=== PATIENT | male | born 1990 | race Caucasian/White ===

== ENCOUNTER 2024-01-20 12:42 | Emergency (ER) | payer BC, SELFPAY ==
[2024-01-20 12:50] VITALS: BP 146/101
[2024-01-20] MEDS: TORADOL 15 MG IV (14:29)
[2024-01-20 14:36] LABS: % Basophils 0.7 % (0-2); % Eosinophils 16.8 % (0-6); % Immature Granulocytes 0.4 % (0-0.5); % Lymphocytes 28.1 % (20.5-51.1); % Monocytes 6.3 % (1.7-9.3); % Neutrophils 47.7 % (42.2-75.2); Absolute Basophils 0.1 10^3/uL (0-0.2); Absolute Eosinophils 1.2 10^3/uL (0-0.7); Absolute Monocytes 0.5 10^3/uL (0.1-0.6); Absolute Neutrophils 3.5 10^3/uL (1.4-6.5); Hemoglobin 16.5 g/dL (13.0-18.0); Mean Corp Hgb Conc. 35.1 g/dL (33.0-37.0); Mean Corpuscular Volume 91.3 fL (80.0-94.0); Mean Platelet Volume 10.2 fL (7.4-10.4); Nucleated Red Blood Cells % 0 % (-); Platelet Count 181 10^3/uL (130-400); Red Blood Cell Count 5.15 10^6/uL (4.70-6.10); Red Cell Dist. Width 11.9 % (11.5-14.5); White Blood Cell Count 7.3 10^3/uL (4.8-10.8)
[2024-01-20 14:43] LABS: INR 1.04; PT 13.7 Sec (11.4-14.6)
[2024-01-20 14:44] LABS: APTT 29.1 Sec (23.4-35.0)
[2024-01-20 14:48] LABS: D-Dimer < 0.27 ug/mlFEU (0.00-0.50)
[2024-01-20 15:01] LABS: ALT (SGPT) 37 U/L (0-50); AST (SGOT) 25 U/L (17-59); Albumin 4.9 g/dl (3.5-5.0); Alkaline Phosphatase 66 U/L (38-126); Blood Urea Nitrogen 14 mg/dl (9-20); Calcium 9.9 mg/dl (8.4-10.2); Carbon Dioxide 34 mmol/L (22-30); Chloride 100 mmol/L (98-107); Glucose 95 mg/dl (70-99); Lipase 54 U/L (23-300); Magnesium 2.1 mg/dl (1.6-2.3); Potassium 4.3 mmol/L (3.5-5.1); Sodium 137 mmol/L (135-145); Total Protein 7.4 g/dl (6.3-8.2); eGFR > 60.00
--- NOTE | 2024-01-20 16:04 | ED.GENMED ---
History of Present Illness
<Saritha Diaz PA-C - Last Filed: 01/21/24 18:11>
General
Chief Complaint: Abdominal Pain
Source: patient
Exam Limitations: none
Time Seen by Provider: 01/20/24 13:19
Nursing documentation reviewed up to this point in time: agreed with
Travel History
Have you had any contact with someone who has COVID-19?: No
Do you have any symptoms of coronavirus? Fever > 100 degrees, chills, cough, shortness of breath, sore throat, loss of taste or smell, muscle aches, or headache?: No
History of Present Illness
History of Present Illness:
33-year-old male within the last several months diagnosed with rheumatoid arthritis on Humira, last shot was last week, followed by rheumatology presents with symptoms worsening in the right lower ribs wrapping around his back and into his shoulder
over the last 6 months. Patient has had this ever since he got diagnosed with rheumatoid arthritis which presented with pain and swelling in his hands which prompted his primary to send him to the nursing home assistant who did inflammatory marker testing
which came back positive. Patient says his hands have gotten much better since being on the Humira but he continues to have this pain in his right lower ribs or upper quadrant region that seems to travel to the shoulder. In the last week its
gotten worse. He does not feel an overly pleuritic component to this pain but he does have it slightly with deep breathing. He is not short of breath or having exertional dyspnea. Patient has had some feeling of nausea when his stomach is empty.
He is also worried about his gallbladder. He called his nursing home assistant today since the pain seems to be getting worse and they sent him for evaluation. Patient has not had a cough or cold or fever.
Past History
<Saritha Diaz PA-C - Last Filed: 01/21/24 18:11>
Past History
ED Past Medical History: None
Social History
Personal: Single
Living: with family
Employment: Employed
Review of Systems
<Saritha Diaz PA-C - Last Filed: 01/21/24 18:11>
Review of Systems
Allergies reviewed?: Yes
All Other Systems: Not applicable
Phy Exam
<Saritha Diaz PA-C - Last Filed: 01/21/24 18:11>
Physical Exam
Physical Exam:
GENERAL: Alert , in no apparent distress
EYE: pupils equal and reactive
NECK: Supple
ENT: o/p clr, mmm.
CARDIAC: Regular rate and rhythm .
LUNGS: Clear breath sounds bilaterally, no acute respiratory distress, no wheezes/rales/rhonchi
chest wall: mild right lower chest wall tendenress
ABDOMEN: Soft, mild RUQ tenderness; no r/g, no cvat, normal bowel sounds
NEUROLOGICAL: Alert and oriented, no focal neuro deficits
SKIN: Warm and dry, skin intact. no rash
back: mild tenderness right side
MUSCULOSKELETAL: No edema, well perfused. neg jamin's sign
PSYCH: Normal and appropriate interaction.
Course
<Saritha Diaz PA-C - Last Filed: 01/21/24 18:11>
Orders/Labs/Results
Orders:
Orders
01/20/24 14:02
Ketorolac [Toradol] 15 mg IV NOW STA
US Abdomen Complete/Upper Urgent
Comment:
Reason For Exam: right upper quad pain to back
01/20/24 14:25
Complete Blood Count/With Diff Urgent
Comprehensive Metabolic Panel Urgent
D-Dimer Urgent
Lipase Urgent
Magnesium Urgent
PTT Urgent
Prothrombin Time Urgent
01/20/24 16:04
CR Chest - 2 Views Urgent
Comment:
Reason For Exam: right lower chest wall pain
Abnormal Lab Results
01/20/24
14:25
MCH 32.0 H pg
(27.0-31.0)
Absolute Eos (auto) 1.2 H 10^3/uL
(0-0.7)
Eosinophils % 16.8 H %
(0-6)
Carbon Dioxide 34 H mmol/L
(22-30)
01/20/24 14:25
01/20/24 14:25
Vital Signs
Initial and Last Documented VS:
Initial Vital Signs
Temp Pulse Resp BP Pulse Ox
97.7 F 117 20 146/101 100
01/20/24 12:50 01/20/24 12:50 01/20/24 12:50 01/20/24 12:50 01/20/24 12:50
Last Documented Vital Signs
Temp Pulse Resp BP Pulse Ox
97.7 F 65 17 128/84 100
01/20/24 12:50 01/20/24 16:49 01/20/24 16:49 01/20/24 16:49 01/20/24 16:49
<Megan Wang PA-C - Last Filed: 01/20/24 18:13>
Orders/Labs/Results
Orders:
Orders
01/20/24 14:02
Ketorolac [Toradol] 15 mg IV NOW STA
US Abdomen Complete/Upper Urgent
Comment:
Reason For Exam: right upper quad pain to back
01/20/24 14:25
Complete Blood Count/With Diff Urgent
Comprehensive Metabolic Panel Urgent
D-Dimer Urgent
Lipase Urgent
Magnesium Urgent
PTT Urgent
Prothrombin Time Urgent
01/20/24 16:04
CR Chest - 2 Views Urgent
Comment:
Reason For Exam: right lower chest wall pain
Abnormal Lab Results
01/20/24
14:25
MCH 32.0 H pg
(27.0-31.0)
Absolute Eos (auto) 1.2 H 10^3/uL
(0-0.7)
Eosinophils % 16.8 H %
(0-6)
Carbon Dioxide 34 H mmol/L
(22-30)
01/20/24 14:25
01/20/24 14:25
Vital Signs
Initial and Last Documented VS:
Initial Vital Signs
Temp Pulse Resp BP Pulse Ox
97.7 F 117 20 146/101 100
01/20/24 12:50 01/20/24 12:50 01/20/24 12:50 01/20/24 12:50 01/20/24 12:50
Last Documented Vital Signs
Temp Pulse Resp BP Pulse Ox
97.7 F 65 17 128/84 100
01/20/24 12:50 01/20/24 16:49 01/20/24 16:49 01/20/24 16:49 01/20/24 16:49
<Saritha Diaz PA-C - Last Filed: 01/21/24 18:11>
MDM/Problems Addressed
Differential Diagnosis Includes:
Cholelithiasis, pneumonia, PE
MDM/Problems Addressed:
33-year-old male with a recent diagnosis of RA in the last 6 months on Humira presents for persistent right-sided lower chest wall/right upper quadrant pain which radiates to his shoulder at times. He is not having a significant amount of pleuritic
component and he is not having a cough. Patient has not had a fever or chills, rash, urinary symptoms, vomiting. Pain is not significantly worse after eating. He called his nursing home assistant and was referred here for an evaluation as it has been
getting worse over the last week. He is mildly tachycardic on arrival in triage but for me did not have any tachycardia. He has no obvious risk factors for PE. His pulse ox is normal. I believe he is low risk enough for D-dimer. Will also get a
chest x-ray if the dimer is negative, LFTs and an ultrasound. I suspect the patient's pain is more musculoskeletal. At this point would be discharged home for follow-up with his nursing home assistant.
<Megan Wang PA-C - Last Filed: 01/20/24 18:13>
*Critical Care Note
Total Time (30-74mins, 75-104mins- exclusive of procedures): Not Applicable
<Megan Wang PA-C - Last Filed: 01/20/24 18:13>
Update Note
Update Note:
17:36 Patient reevaluated and remains comfortable. Patient made aware of normal RUQ ultrasound and normal chest x-ray. At this time, patient is safe for discharge to home with close outpatient follow-up with his primary care provider and
nursing home assistant for further evaluation and treatment. Patient and his significant other were educated on return precautions, they expressed understanding of the plan and agreed.
ED Attending Note
<Saritha Diaz PA-C - Last Filed: 01/21/24 18:11>
-
Portions of this chart may have been created with voice recognition software.� Occasional wrong word or��sound alike� substitutions may have occurred due to the inherent limitations of voice recognition software.
Discharge Plan
Departure
Patient Disposition: Home (Routine Discharge)
Date of Disposition: 01/20/24
Time of Disposition: 17:33
Patient with high blood pressure during this ER visit?: No
Condition: Good
Covid-19: Not Applicable
Discharge Problem:
Chest wall pain
Instructions: Chest Pain (DC), Abdominal Pain, Adult ED
Prescriptions:
No Action
No Meds [No Current Medications]
0
Referrals:
Follow up, with your nursing home assistant [Other] - Follow up in 5-7 days
NONE,* [Family Provider] -
Activity Restrictions/Additional Instructions:
You were seen in the emergency department for upper abdominal/lower chest pain. While you were in the emergency department, you had an extensive workup which included an EKG, lab work, chest x-ray, and ultrasound of your right upper abdomen. No
dangerous abnormalities were found and we believe it is safe for you to be discharged home. You may continue to use [id number] pain medication if needed for pain. Please follow-up with your nursing home assistant and your primary care provider for
further evaluation and treatment. Please return to the emergency department if you develop a fever greater than 101 Fahrenheit, worsening chest pain, shortness of breath or difficulty breathing, persistent vomiting, or for any other worsening or
concerning symptoms.
Interventions
Interventions:
*Risk Screen - Suicide Last Done: 01/20/24 14:37
*General Assessment Last Done: 01/20/24 14:37
*Neglect/Abuse Screening Last Done: 01/20/24 14:37
ED- Fall Risk Assessment Last Done: 01/20/24 14:37
*ED COVID-19 Vaccine History Last Done: 01/20/24 12:50
*Nursing Disposition Last Done: 01/20/24 17:35
NN-Rslitm-Fwbjsiazbr Assessment Last Done: 01/20/24 14:36
Discharge Date and Time
Discharge Date/Time: 01/20/24 17:46
Print Language: PORTUGUESE
[2024-01-20 16:49] VITALS: BP 128/84
== END 2024-01-20 17:46 | disposition home or self-care (01) ==
LOC: EMR 12:42
PROVIDERS: Physician Assistant; EMERGENCY PHYSICIAN Emergency Medicine
DX: R07.89 Other chest pain (principal); R07.81 Pleurodynia; R00.0 Tachycardia, unspecified; M06.9 Rheumatoid arthritis, unspecified
CPT/HCPCS: 99285; 96374; 71046; 76700; 80053; 83690; 83735; 85025; 85379; 85610; 85730